=== PATIENT | female | born 1955 | race Caucasian/White ===

== ENCOUNTER 2020-02-18 17:15 | Emergency (ER) | payer BC, OTHER, SELFPAY ==
[2020-02-18 17:19] VITALS: BP 173/102; PULSE 102; TEMP 37; O2SAT 97
[2020-02-18] MEDS: Tetracaine 0.5% 4 ML BTL (17:31)
[2020-02-18] MEDS: Fluorescein STRIPS 100/BOX 1 MG (17:31)
--- NOTE | 2020-02-18 17:38 | ED.GENADUL_ITS ---
Discharge Plan Disposition Patient Disposition: HOME Condition: Improving Discharge Details Chief Complaint: Allergic Clinical Impression: Herpes zoster virus infection of face and ear nerves ED Provider: Alejandro Herring Home Meds and New Rx's Prescriptions: New valacyclovir 1 gram tablet 1,000 mg PO TID 7 Days Qty: 21 RF: 0 prednisone 10 mg tablet 10 mg PO DAILY Qty: 72 RF: 0 No Action No Known Home Meds RF: 0 Discharge Instructions Instructions: Shingles (ED) Additional Instructions: We will ask our care management team to arrange a follow-up for you at the local optometry office to recheck that there is no involvement of your cornea. Please take medications as prescribed. Return for any acute concerns. Use Tylenol and/or ibuprofen as needed for pain. Medical Decision Making 65-year-old female presents with what she thought was ear infection due to ear pain that began 3 days ago, she separately developed facial rash over 2 days which she thought was due to spider bites. It is been painful, constant. On exam she is hypertensive and has some discomfort but does reveal a vesicular rash of the right face and distributions of V1 and V2. This is consistent with herpes zoster. Fluorescein exam does not reveal corneal involvement. I will treat her with valacyclovir as well as prednisone given her age over 50. I will ask for her to be followed up for recheck at local optometry clinic. We also will arrange for her to establish local primary care. HPI General Mode of arrival: ambulatory . Date/Time Provider Initiated Documentation: 02/18/20 17:17 . Limitations to Documentation: no limitations . Information obtained by: patient . History of Present Illness 65 year old F presents to the emergency department with the chief complaint of Right ear pain, right face rash for 3 days, and is localized to the face and right. Patient reports no radiation. Patient started experiencing this day(s) and it has been constant. No relieving factors improve symptom(s), No exacerbating fac tors reported . Patient notes rash; denies fever/chills and nausea/vomiting. Patient did receive the following treatments prior to arrival, other (Topical ointment) Related Data Home Medications Medication Instructions Recorded Confirmed Unknown [No Known Home Meds] 02/18/20 02/18/20 prednisone 10 mg PO DAILY #72 tab 02/18/20 valacyclovir 1,000 mg PO TID 7 Days #21 tab 02/18/20 Previous Rx's Medication Instructions Recorded prednisone 10 mg PO DAILY #72 tab 02/18/20 valacyclovir 1,000 mg PO TID 7 Days #21 tab 02/18/20 Allergies Allergy/AdvReac Type Severity Reaction Status Date / Time No Known Allergies Allergy Unverified 02/18/20 17:34 General Stated Complaint: Allergic ILDEFONSO: 3 Review of Systems Narrative: 6 systems reviewed and otherwise negative. [facility] Social History Smoking/Tobacco Use Status: Never Alcohol Intake: current Alcohol Intake frequency: 0-2 drinks per day Alcohol type: wine Drug use: Never Substance use type: does not use Do you feel safe at home: Yes Do you feel safe in your relationship?: Yes Exam Narrative Exam Narrative: GEN: awake, alert, oriented 3. Pleasant, well groomed, interactive. HEAD: Normocephalic, atraumatic ENT: Mucous membranes moist, oropharynx unremarkable, External ear exam unremarkable, tympanic membranes clear and visualized bilaterally EYES: PERRL, EOMI, fluorescein staining and negative NECK: Full ROM, no JOSHUA, no menigismus CHEST/RESP: Nontender, clear to auscultation bilateral, no wheeze/rhonchi/rales CARDIOVASCULAR: RRR, no murmur, rub lisa. 2+ Rad pulse bilateral EXT: Full ROM, no edema, no rash Skin: There is an erythematous rash with raised vesicles present on the forehead and right mid face. Neuro: Grossly normal neurologic exam, conversant, interactive. Psych: Speech fluent, thoughts congruent, affect normal Course Vital Signs Vital signs: Vital Signs Temperature 37.0 C 02/18/20 17:19 Pulse 102 H 02/18/20 17:19 Blood Pressure 173/102 H 02/18/20 17:19 Pulse Oximetry 97 02/18/20 17:19 Temperature 37.0 C 02/18/20 17:19 Temperature Source Temporal Artery Scan 02/18/20 17:19 Pulse 102 H 02/18/20 17:19 Respiratory Effort Non-Labored 02/18/20 17:24 Respiratory Pattern Normal 02/18/20 17:24 Blood Pressure 173/102 H 02/18/20 17:19 Blood Pressure Position Sitting 02/18/20 17:19 Pulse Oximetry 97 02/18/20 17:19 Oxygen Delivery Method Room Air 02/18/20 17:19 Oxygen Flow Rate 0 02/18/20 17:19 Pain Level 8 02/18/20 17:30
[2020-02-18] MEDS: valACYclovir 500 MG TAB (17:39)
[2020-02-18] MEDS: valACYclovir 500 MG TAB 1000 MG (17:40)
[2020-02-18] MEDS: predniSONE 20 MG TAB 60 MG PO (17:40)
[2020-02-18] MEDS: valACYclovir 1,000 MG TAB 2000 MG PO (18:41)
--- NOTE | 2020-02-19 07:28 | NUR.NOTE ---
Referral and note faxed to [facility]. Copy of referral to Care Management to establish pcp also.Nursing Note:
--- NOTE | 2020-02-20 12:51 | PDOC.ERCMPRO ---
- If Service Date Differs Date of service: 02/20/20 Time of Service: 12:51 Care Management Progress Note At the request of ED provider, CM coordinates a referral to Oli Doyle MD, on-call doc, of [facility], to assist Jazmin in establishing care with a local PCP.
== END 2020-02-18 18:08 | disposition home or self-care (01) ==
LOC: ER 18:19
PROVIDERS: Emergency Provider Emergency Medicine
DX: B02.8 Zoster with other complications (principal); H92.01 Otalgia, right ear; H05.221 Edema of right orbit
CPT/HCPCS: 36416; 82962; 99283; 99284; J7512